=== PATIENT | male | born 1960 | race African-American/Black ===

== ENCOUNTER 2024-02-11 09:22 | Emergency (ER) | payer MEDICAID, OTHER ==
[~2024-02-11] VITALS: Ht 180.3 cm; Wt 99.8 kg
[2024-02-11 09:46] VITALS: BP 153/105; TEMP 97.8; O2SAT 97
[2024-02-11] MEDS ORDERED: IBUP-1490 PO (13:23)
== END 2024-02-11 13:38 | disposition home or self-care (01) ==
LOC: ER 09:22
DX: M19.071 Primary osteoarthritis, right ankle and foot (principal); M79.671 Pain in right foot
CPT/HCPCS: 73630-TC